=== PATIENT | female | born 1990 | race Caucasian/White ===

== ENCOUNTER 2019-01-14 15:02 | Emergency (ER) | payer MEDICAID ==
--- NOTE | 2019-01-14 16:20 | EDM.PDOC ---
ED HPI GENERAL MEDICAL PROBLEM - General Chief Complaint: Abdominal Pain Stated Complaint: NEWLY PG - ABDOMINAL PAIN Time Seen by Provider: 01/14/19 15:58 Source of Information: Reports: Patient, RN Notes Reviewed History Limitations: Reports: No Limitations - History of Present Illness INITIAL COMMENTS - FREE TEXT/NARRATIVE: Patient is a 28-year-old female who presents to the ED for the evaluation of abdominal cramping. The patient notes that she is roughly 6 weeks . She estimates her last menses to be December 02, 2018. She states that this morning she woke up with some slight abdominal cramping. She notes that the pain didn't really get a hole at better, and at noon today the pain did worsen and radiated into her back. She notes that the pain kind of comes and goes in waves. She has not having any bleeding per her vagina. She denies any dysuria , however does state that she has some mild urinary urgency and frequency, she also had some slight cramping at the end of urinary stream as well. The patient states that she was seen last Thursday in the [place] by Dr. Carrington and her hCG quantitative level was at 159 at that time. She notes that she has her initial OB visit with Dr. Carrington on February 01. Bilateral Lower Abdominal Pain Score (Numeric/FACES): 8 - Related Data Allergies Allergy/AdvReac Type Severity Reaction Status Date / Time No Known Allergies Allergy Verified 01/14/19 15:24 Home Meds: Home Meds . 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: - Past Surgical History Female Surgical History: Reports: Section Social & Family History - Family History Family Medical History: Noncontributory - Tobacco Use Smoking Status *Q: Former Smoker Used Tobacco, but Quit: Yes Month/Year Tobacco Last Used: 11/2018 - Caffeine Use Caffeine Use: Reports: Coffee - Recreational Drug Use Recreational Drug Use: No ED ROS GENERAL - Review of Systems Review Of Systems: See Below Constitutional: Reports: No Symptoms HEENT: Reports: No Symptoms Respiratory: Reports: No Symptoms Cardiovascular: Reports: No Symptoms Endocrine: Reports: No Symptoms GI/Abdominal: Reports: No Symptoms : Reports: Frequency, Urgency, Other (lower pelvic cramping) Musculoskeletal: Reports: Back Pain (low back pain) Skin: Reports: No Symptoms Neurological: Reports: No Symptoms Psychiatric: Reports: No Symptoms ED EXAM, RENAL/ - Physical Exam Exam: See Below Exam Limited By: No Limitations General Appearance: Alert, WD/WN, No Apparent Distress Respiratory/Chest: No Respiratory Distress, Lungs Clear, Normal Breath Sounds, No Accessory Muscle Use, Chest Non-Tender Cardiovascular: Normal Peripheral Pulses, Regular Rate, Rhythm, No Murmur GI/Abdominal: Normal Bowel Sounds, Soft, Non-Tender, No Distention, No Mass (Female) Exam: Deferred Neurological: Alert, Oriented, Normal Cognition, No Motor/Sensory Deficits Psychiatric: Normal Affect, Normal Mood Skin Exam: Warm, Dry, Intact, Normal Color, No Rash Course - Vital Signs Last Recorded V/S: Last Vital Signs Temp 97.8 F 01/14/19 15:18 Pulse 69 01/14/19 15:18 Resp 14 01/14/19 15:18 BP 123/76 01/14/19 15:18 Pulse Ox 99 01/14/19 15:18 - Orders/Labs/Meds Orders: Active Orders 24 hr Category Date Time Status OB Transvaginal [US] Stat Exams 01/14/19 15:59 Ordered Labs: Laboratory Tests 01/14/19 01/14/19 Range/Units 15:50 16:10 HCG, Quant 3517.0 mIU/mL Urine Color Yellow (Yellow) Urine Appearance Clear (Clear) Urine pH 7.0 (5.0-8.0) Ur Specific [place] 1.015 (1.005-1.030) Urine Protein Negative (Negative) Urine Glucose (UA) Negative (Negative) Urine Ketones Negative (Negative) Urine Occult Blood Negative (Negative) Urine Nitrite Negative (Negative) Urine Bilirubin Negative (Negative) Urine Urobilinogen 0.2 (0.2-1.0) Ur Leukocyte Esterase Negative (Negative) Urine RBC 0-5 (0-5) /hpf Urine WBC 0-5 (0-5) /hpf Ur Squamous Epith Cells 0-5 (0-5) /hpf Urine Bacteria Rare (FEW) /hpf Urine Mucus Not seen (FEW) /hpf - Re-Assessments/Exams Free Text/Narrative Re-Assessment/Exam: 01/14/19 16:15 Patient presents to the ED for the evaluation of lower abdominal pain and cramping. I have ordered a transvaginal ultrasound to ensure the viability of the , and hCG quantitative level to make sure that this has risen since her last draw, and a UA to evaluate for a possible UTI. 01/14/19 16:47 UA is negative for UTI. 01/14/19 17:17 Quant hCG is 3517 at this ED visit, US results are still pending. Departure - Departure Time of Disposition: 17:35 Disposition: Home, Self-Care 01 Condition: Fair Clinical Impression: Abdominal cramping affecting - Discharge Information *PRESCRIPTION DRUG MONITORING PROGRAM REVIEWED*: No *COPY OF PRESCRIPTION DRUG MONITORING REPORT IN PATIENT MARY: No Instructions: Abdominal Pain During Referrals: PCP,None [Primary Care Provider] - Forms: ED Department Discharge Additional Instructions: You have been evaluated in the ED today for your abdominal pain in . Your urinalysis was negative for a UTI at this time, your ultrasound shows a single live early intrauterine gestation, which is still too small to date. Your hCG level is 3517. Please keep your appointment with Dr. Carrington for initial OB workup. If you should develop increased pelvic cramping, with vaginal bleeding, this would be cause for concern to return to immediately to the ER for reevaluation. Please return to the ED if your symptoms should change or worsen. - My Orders Last 24 Hours: My Active Orders 01/14/19 15:59 OB Transvaginal [US] Stat - Assessment/Plan Last 24 Hours: My Active Orders 01/14/19 15:59 OB Transvaginal [US] Stat
--- NOTE | 2019-01-16 19:35 | US ---
First trimester obstetrical ultrasound: Multiple real-time images were obtained transvaginally. Very small cystic area noted within the endometrial cavity with what appears to be surrounding decidual reaction. This finding is suspicious for very early which is too small to date. Small amount of free fluid is identified within the cul-de-sac which is believed to be incidental. Very minimal implantation bleed is seen. Maternal ovaries are unremarkable. Impression: 1. Small gestational sac which is too early to date. Follow-up exam could be considered in 11 days to confirm normal developing . 2. Other findings as described above which I believe are incidental. Diagnostic code #1 I agree with preliminary report issued by [facility] ([facility] preliminary report dictated on 01/14/19, 6:22 PM Central Time)
== END 2019-01-14 17:43 | disposition home or self-care (01) ==
LOC: JD.ED 15:02
DX: O99.89 Other specified diseases and conditions complicating pregnancy, childbirth and the puerperium (principal); R10.31 Right lower quadrant pain; R10.32 Left lower quadrant pain; Z3A.01 Less than 8 weeks gestation of pregnancy; Z87.891 Personal history of nicotine dependence
CPT/HCPCS: 36415; 76817; 76817-26; 81001; 84702; 99282; 99284-25

== ENCOUNTER 2019-04-01 22:50 | Emergency (ER) | payer MEDICAID, OTHER ==
--- NOTE | 2019-04-01 23:28 | EDM.PDOC ---
ED HPI GENERAL MEDICAL PROBLEM - General Chief Complaint: PRESSURE TESTER Problem Stated Complaint: 18 WEEKS PREG BACK PAIN AND SOME PATRICIA Time Seen by Provider: 04/01/19 23:00 Source of Information: Reports: Patient, Significant Other (Boyfriend) History Limitations: Reports: No Limitations - History of Present Illness INITIAL COMMENTS - FREE TEXT/NARRATIVE: The patient is a proximally 17 weeks 0 days gestation by dates. LMP 12/03/2018. CLINT 09/09/19. G6 T4 L4, with one ectopic . The patient states that she developed intermittent lower central pelvic pain around 22:00 this evening. The pain lasts only a few seconds, coming and going about every 8-10 minutes. When present, it radiates bilaterally to her flanks. She states that the pain is similar to when she had a miscarriage in the past. She has not had any vaginal bleeding. The patient had an obstetric ultrasound on 01/14/2019, demonstrating a SLIUP, too young to date. She saw her Antenna Engineer on 03/01/2019. The patient states that a Pap smear and blood work were done, all of which were unremarkable. She then saw her OB a couple of days ago, on 03/29/2019. heart tones were noted to be 153. The patient is scheduled to have an obstetric ultrasound in about 2 weeks. The patient denies recent illness. The patient denies having urinary symptoms. The patient does not have a PCP. Her PRESSURE TESTER is Dr. Aletha Carrington. Abdominal Pain Score (Numeric/FACES): 8 - Related Data Allergies Allergy/AdvReac Type Severity Reaction Status Date / Time No Known Allergies Allergy Verified 04/01/19 23:03 Home Meds: Home Meds Ondansetron [Zofran] 4 mg PO QAM 04/01/19 [History] Pnv No.122/Iron/Folic Acid [ Multi Tablet] 1 tab PO DAILY 04/01/19 [ History] Past Medical History PRESSURE TESTER History: Reports: Ectopic (x 1), : 6 Para: 4 - Past Surgical History Female Surgical History: Reports: Section (x 2), Other (See Below) ( Left salpingectomy for ectopic ) Social & Family History - Family History Family Medical History: Noncontributory - Tobacco Use Smoking Status *Q: Former Smoker Years of Tobacco use: 15 Packs/Tins Daily: 0.5 Packs/Tins Daily Comment: Quit December 2018 - Caffeine Use Caffeine Use: Reports: Soda - Alcohol Use Alcohol Use History: No - Recreational Drug Use Recreational Drug Use: No - Living Situation & Occupation Living situation: Reports: Single, with Significant Other (Boyfriend), with Family (1 son) Occupation: Unemployed ED ROS GENERAL - Review of Systems Review Of Systems: ROS reveals no pertinent complaints other than HPI. ED EXAM - Physical Exam Exam: See Below Exam Limited By: No Limitations General Appearance: Alert, WD/WN, No Apparent Distress Eye Exam: Bilateral Eye: EOMI, Normal Inspection Ears: Normal External Exam, Hearing Grossly Normal Nose: Normal Inspection Throat/Mouth: Normal Inspection, Normal Lips, Normal Voice, No Airway Compromise Head: Atraumatic, Normocephalic Neck: Normal Inspection, Full Range of Motion Respiratory/Chest: No Respiratory Distress, Lungs Clear, Normal Breath Sounds, No Accessory Muscle Use Cardiovascular: Normal Peripheral Pulses, Regular Rate, Rhythm, No Edema, No Gallop, No JVD, No Murmur, No Rub GI/Abdominal Exam: Normal Bowel Sounds, Soft, Non-Tender, No Distention, No Abnormal Bruit, No Mass, Pelvis Stable, Other (Gravid uterus consistent with dates) Rectal Exam: Deferred Heart Tones: Present Heart Tones per Min: 131 Back Exam: Normal Inspection, Full Range of Motion, NT Extremities: Normal Inspection, Normal Range of Motion, No Pedal Edema, Normal Capillary Refill Neurological: Alert, Oriented, Normal Cognition, No Motor/Sensory Deficits Psychiatric: Normal Affect Skin Exam: Warm, Dry, Intact, Normal Color, No Rash Course - Vital Signs Last Recorded V/S: Last Vital Signs Temp 36.1 C 04/01/19 23:05 Pulse 90 04/01/19 23:05 Resp 14 04/01/19 23:05 BP 123/66 04/01/19 23:05 Pulse Ox 100 04/01/19 23:05 - Orders/Labs/Meds Orders: Active Orders 24 hr Category Date Time Status Heart Tones [RC] ASDIRECTED Care 04/01/19 23:10 Active Labs: Laboratory Tests 04/01/19 Range/Units 23:22 Urine Color Light yellow (Yellow) Urine Appearance Cloudy H (Clear) Urine pH 7.0 (5.0-8.0) Ur Specific [place] 1.020 (1.005-1.030) Urine Protein Negative (Negative) Urine Glucose (UA) Negative (Negative) Urine Ketones Negative (Negative) Urine Occult Blood Negative (Negative) Urine Nitrite Negative (Negative) Urine Bilirubin Negative (Negative) Urine Urobilinogen 1.0 (0.2-1.0) Ur Leukocyte Esterase Negative (Negative) Urine RBC 0-5 (0-5) /hpf Urine WBC 0-5 (0-5) /hpf Ur Squamous Epith Cells 0-5 (0-5) /hpf Amorphous Sediment Many H (NOT SEEN) /hpf Urine Bacteria Few (FEW) /hpf Urine Mucus Few (FEW) /hpf - Re-Assessments/Exams Free Text/Narrative Re-Assessment/Exam: 04/01/19 23:23 heart tones are measured at about 131 bpm. I have ordered a urinalysis to make sure that the patient is not suffering from a UTI. An obstetric ultrasound is not indicated, given that a prior obstetric ultrasound found a SLIUP, and heart tones are found tonight. Because the patient is over 16 weeks gestation, a quantitative hCG is no longer meaningful. 04/01/19 23:46 The patient's urinalysis is unremarkable. I will discharge her home. Departure - Departure Time of Disposition: 23:47 Disposition: Home, Self-Care 01 Condition: Good Clinical Impression: Discomfort during - Discharge Information *PRESCRIPTION DRUG MONITORING PROGRAM REVIEWED*: Not Applicable *COPY OF PRESCRIPTION DRUG MONITORING REPORT IN PATIENT MARY: Not Applicable Referrals: Aletha Carrington MD [Primary Care Provider] - Forms: ED Department Discharge Additional Instructions: You were seen in the emergency room for intermittent lower pelvic pain radiating to your flanks, without vaginal bleeding, during . Workup in the ER included heart tones and a urinalysis. Your heart tones returned at 131, and your urinalysis was unremarkable. You do not have a UTI. Based on your history, physical exam, and ER tests, you are most likely suffering from discomfort . You may take [id number] Tylenol as needed for discomfort. Continue to take your vitamins as prescribed. Follow-up with your Antenna Engineer, Dr. Aletha Carrington, as needed, or at your previously scheduled appointment in about 2 weeks. If any other problems, please do not hesitate to return to the ER. - My Orders Last 24 Hours: My Active Orders 04/01/19 23:10 Heart Tones [RC] ASDIRECTED - Assessment/Plan Last 24 Hours: My Active Orders 04/01/19 23:10 Heart Tones [RC] ASDIRECTED
== END 2019-04-01 23:59 | disposition home or self-care (01) ==
LOC: JD.ED 22:50
DX: O26.892 Other specified pregnancy related conditions, second trimester (principal); R10.2 Pelvic and perineal pain; Z3A.17 17 weeks gestation of pregnancy; Z87.891 Personal history of nicotine dependence
CPT/HCPCS: 81001; 99282; 99284

== ENCOUNTER 2019-09-07 04:56 | Inpatient (IN) | payer MEDICAID ==
[~2019-09-07 04:56] MED LIST: Sodium Chloride 0.9% 10 ML Syringe FLUSH PRN
[2019-09-07] MEDS: Lactated Ringers 1,000 ML IV SCH ×2 (05:40→06:49)
[2019-09-07] MEDS ORDERED: Metoclopramide 10 MG/2 ML SDV IVPUSH ONE (06:30)
[2019-09-07] MEDS ORDERED: Citric Acid/Sodium Citrate Solution 30 ML Cup PO ONE (06:30)
[2019-09-07] MEDS ORDERED: ceFAZolin 2 GM in Premix Bag 1 BAG IV ONE (07:00)
[2019-09-07] MEDS ORDERED: ceFAZolin 1 GM Vial ONE (07:19)
[2019-09-07] MEDS ORDERED: Lactated Ringers 2,000 ML ONE (07:19)
[2019-09-07] MEDS ORDERED: Ketorolac 30 MG/ML SDV ONE (07:19)
[2019-09-07] MEDS ORDERED: Ondansetron 4 MG/2 ML SDV ONE (07:19)
[2019-09-07] MEDS ORDERED: Oxytocin 10 Units/1 ML SDV ONE (07:19)
[2019-09-07] MEDS ORDERED: Morphine PF 10 MG/10 ML SDV ONE (07:20)
--- NOTE | 2019-09-07 07:24 | PCM.OPNOTE ---
- General Post-Op/Procedure Note Date of Surgery/Procedure: 09/07/19 Operative Procedure(s): repeat Findings: significant adhesions, thin low uterine segment (window), male, vertex, 9/9 APGARS at 927, weight 7#14oz Pre Op Diagnosis: prior desires repeat Post-Op Diagnosis: Same Anesthesia Technique: Spinal Primary Surgeon: Aletha Carrington Anesthesia Provider: Denise Choudhury Branch Billing Payroll Clerk: Evelyne Jacob Fluid Replacement, Intraop: 800 Output, Urine Amount: 175 EBL in mLs: 800 Complications: None Condition: Good Free Text/Narrative:: The patient was taken to the operating room where spinal anesthesia was dosed to surgical levels without difficulty. The patient was prepped and draped in the usual sterile fashion in the dorsal supine position with a leftward tilt. A Pfannenstiel skin incision was made with the scalpel and carried through to the underlying layer of fascia. The fascia was incised in the midline and extended laterally using Cruz scissors. Kiarra clamps were used to elevate the superior aspect of the fascial incision, which was elevated, and the underlying rectus muscles were dissected off bluntly and using Cruz scissors. Attention was then turned to the inferior aspect of the fascial incision, which in similar fashion was grasped with Kiarra clamps, elevated, and the underlying rectus muscles were dissected off bluntly and using the cruz. The rectus muscles were dissected in the midline. Significant adhesions taken down carefully and rectus divided laterally. The peritoneum was entered bluntly; this incision was extended superiorly and inferiorly with good visualization of the bladder. Thick peritoneal bands divided. The bladder blade was inserted. The lower uterine segment was incised in a transverse fashion using the scalpel and with digital traction. Clear fluid was noted. The infant was subsequently delivered by flexing the head to the incision. Body and shoulders followed without difficulty. The cord was clamped and cut. The infant was subsequently handed to the awaiting boat tender whose presence had been requested.. The placenta was delivered spontaneously intact with a three-vessel cord noted. The uterus was exteriorized and small band of adhesion divided to allow this and cleared of all clots and debris. The uterine incision was repaired in 2 layers using 0 monocryl. Hemostasis was visualized. Hemostasis was visualized bilaterally. The uterus was returned to the abdomen. The uterine incision was reexamined and it was noted to be hemostatic. The pelvis was copiously irrigated. The fascia was closed with 0 PDS suture, and the skin was closed with 3-0 monocryl. Sponge , lap, and instrument counts were correct x2. The patient was stable at the completion of the procedure and was subsequently transferred to the recovery room in stable condition.
[2019-09-07] MEDS ORDERED: Oxytocin/Lactated Ringers 10 UNIT/1,000 ML BAG IV SCH (07:30)
[2019-09-07] MEDS ORDERED: Bupivacaine 0.5% 30 ML SDV ONE (07:51)
[2019-09-07] MEDS ORDERED: Ondansetron 4 MG/2 ML SDV IVPUSH PRN (08:26)
[2019-09-07] MEDS ORDERED: fentaNYL 100 MCG/2 ML SDV IVPUSH PRN (08:26)
[2019-09-07] MEDS ORDERED: diphenhydrAMINE 50 MG/ML SDV IVPUSH PRN ×2 (08:26→11:13)
--- NOTE | 2019-09-07 08:26 | PCM.PREANE ---
Preanesthetic Assessment - Anesthesia/Transfusion/Family Hx Anesthesia History: Prior Anesthesia Without Reaction Family History of Anesthesia Reaction: No Transfusion History: No Prior Transfusion(s) - Review of Systems General: No Symptoms Pulmonary: No Symptoms Cardiovascular: No Symptoms Gastrointestinal: No Symptoms Neurological: No Symptoms Other: Reports: None - Physical Assessment NPO Status Date: 09/07/19 NPO Status Time: 00:00 Vital Signs: Last Vital Signs Temp 36.7 C 09/07/19 05:12 Pulse 97 09/07/19 05:12 Resp 14 09/07/19 05:12 BP 123/67 09/07/19 05:12 Pulse Ox 98 09/07/19 05:12 Height: 1.6 m Weight: 81.193 kg ASA Class: 2 Mental Status: Alert & Oriented x3 Airway Class: Mallampati = 1 Dentition: Reports: Normal Dentition, Caries Thyro-Mental Finger Breadths: 3 Mouth Opening Finger Breadths: 3 ROM/Head Extension: Full Lungs: Clear to Auscultation, Normal Respiratory Effort Cardiovascular: Regular Rate, Regular Rhythm - Lab Values: Laboratory Last Values WBC 12.83 K/mm3 (3.98-10.04) H 09/07/19 05:47 RBC 4.71 M/mm3 (3.98-5.22) 09/07/19 05:47 Hgb 9.4 gm/dl (11.2-15.7) L D 09/07/19 05:47 Hct 32.0 % (34.1-44.9) L 09/07/19 05:47 MCV 67.9 fl (79.4-94.8) L D 09/07/19 05:47 MCH 20.0 pg (25.6-32.2) L 09/07/19 05:47 MCHC 29.4 g/dl (32.2-35.5) L 09/07/19 05:47 RDW Std Deviation 42.2 fL (36.4-46.3) 09/07/19 05:47 Plt Count 244 K/mm3 (182-369) 09/07/19 05:47 MPV 10.6 fl (9.4-12.3) 09/07/19 05:47 Neut % (Auto) 74.2 % (34.0-71.1) H 09/07/19 05:47 Lymph % (Auto) 15.8 % (19.3-51.7) L 09/07/19 05:47 [place] % (Auto) 8.6 % (4.7-12.5) 09/07/19 05:47 Eos % (Auto) 0.6 (0.7-5.8) L 09/07/19 05:47 Baso % (Auto) 0.2 % (0.1-1.2) 09/07/19 05:47 Neut # (Auto) 9.52 K/mm3 (1.56-6.13) H 09/07/19 05:47 Lymph # (Auto) 2.03 K/mm3 (1.18-3.74) 09/07/19 05:47 [place] # (Auto) 1.10 K/mm3 (0.24-0.36) H 09/07/19 05:47 Eos # (Auto) 0.08 K/mm3 (0.04-0.36) 09/07/19 05:47 Baso # (Auto) 0.02 K/mm3 (0.01-0.08) 09/07/19 05:47 Manual Slide Review Abnormal smear 09/07/19 05:47 - Allergies Allergies/Adverse Reactions: Allergies Allergy/AdvReac Type Severity Reaction Status Date / Time No Known Allergies Allergy Verified 09/07/19 07:35 - Acknowledgements Anesthesia Type Planned: Spinal Pt an Appropriate Candidate for the Planned Anesthesia: Yes Alternatives and Risks of Anesthesia Discussed w Pt/Guardian: Yes Pt/Guardian Understands and Agrees with Anesthesia Plan: Yes PreAnesthesia Questionnaire Respiratory History: Reports: Asthma 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 D&C 2018 - SUBSTANCE USE Smoking Status *Q: Former Smoker Tobacco Use Within Last Twelve Months: Cigarettes Second Hand Smoke Exposure: Yes Recreational Drug Use History: No - HOME MEDS Home Medications: Home Meds No122/Iron/Folic Acid [ Multi Tablet] 1 tab PO DAILY 04/01/19 [ History] - CURRENT (IN HOUSE) MEDS Current Meds: Current Medications Lactated Ringer's (Ringers, Lactated) 1,000 mls @ 125 mls/hr IV ASDIRECTED GIORGI Last Admin: 09/07/19 06:49 Dose: 125 mls/hr Oxytocin/Lactated Ringer's (Pitocin In Lr 10 Units/1,000 Ml) 10 unit in 1,000 mls @ 100 mls/hr IV ASDIRECTED GIORGI; Protocol Sodium Chloride (Saline Flush) 10 ml FLUSH ASDIRECTED PRN PRN Reason: Keep Vein Open Discontinued Medications Bupivacaine HCl (Marcaine 0.5%) Confirm Administered Dose 30 ml .ROUTE .STK-MED ONE Stop: 09/07/19 07:52 Cefazolin Sodium (Ancef) Confirm Administered Dose 2 gm .ROUTE .STK-MED ONE Stop: 09/07/19 07:20 Citric Acid/Sodium Citrate (Bicitra Solution) 30 ml PO ONETIME ONE Stop: 09/07/19 06:31 Last Admin: 09/07/19 05:52 Dose: 30 ml Cefazolin Sodium/Dextrose 2 gm (/ Premix) 50 mls @ 100 mls/hr IV ONETIME ONE Stop: 09/07/19 07:29 Lactated Ringer's (Ringers, Lactated) Confirm Administered Dose 2,000 mls @ as directed .ROUTE .STK-MED ONE Stop: 09/07/19 07:20 Ketorolac Tromethamine (Toradol) Confirm Administered Dose 30 mg .ROUTE .STK- MED ONE Stop: 09/07/19 07:20 Metoclopramide HCl (Reglan) 10 mg IVPUSH ONETIME ONE Stop: 09/07/19 06:31 Last Admin: 09/07/19 05:52 Dose: 10 mg Morphine Sulfate (Duramorph Pf) Confirm Administered Dose 10 mg .ROUTE .STK-MED ONE Stop: 09/07/19 07:21 Ondansetron HCl (Zofran) Confirm Administered Dose 4 mg .ROUTE .STK-MED ONE Stop: 09/07/19 07:20 Oxytocin (Pitocin) Confirm Administered Dose 20 unit .ROUTE .STK-MED ONE Stop: 09/07/19 07:20
[2019-09-07] MEDS ORDERED: Dexamethasone 4 MG/ML SDV ONE (08:45)
[2019-09-07] MEDS ORDERED: Phenylephrine/Normal Saline 100 MCG/ML 10 ML Syringe ONE (09:15)
[2019-09-07] MEDS ORDERED: ePHEDrine/Normal Saline 25 MG/5 ML Syringe ONE (09:15)
--- NOTE | 2019-09-07 10:07 | PCM.POSTAN ---
POST ANESTHESIA ASSESSMENT - MENTAL STATUS Mental Status: Alert, Oriented - VITAL SIGNS Vital Signs: Last Vital Signs Temp 36.7 C 09/07/19 05:12 Pulse 97 09/07/19 05:12 Resp 14 09/07/19 05:12 BP 123/67 09/07/19 05:12 Pulse Ox 98 09/07/19 05:12 0955 110/51 78 20 97.8F 95% - RESPIRATORY Respiratory Status: Respiratory Rate WNL, Airway Patent, O2 Saturation Stable - CARDIOVASCULAR CV Status: Pulse Rate WNL, Blood Pressure Stable - GASTROINTESTINAL GI Status: No Symptoms - PAIN Pain Score: 0 - POST OP HYDRATION Hydration Status: Adequate & Stable
[2019-09-07] MEDS ORDERED: Acetaminophen/oxyCODONE 325-5 MG Tab PO PRN ×2 (11:13)
[2019-09-07] MEDS ORDERED: Docusate Sodium 100 MG Cap PO PRN (11:13)
[2019-09-07] MEDS ORDERED: Dextrose 5%-Lactated Ringers 1,000 ML IV SCH (11:13)
[2019-09-07] MEDS ORDERED: Naloxone 0.4 MG/ML SDV IVPUSH PRN (11:13)
[2019-09-07] MEDS ORDERED: ePHEDrine 50 MG/ML SDV IVPUSH PRN (11:13)
[2019-09-07] MEDS ORDERED: Ketorolac 30 MG/ML SDV IVPUSH SCH (13:30)
[2019-09-07] MEDS: Ketorolac 30 MG/ML SDV IVPUSH SCH ×2 (16:12→22:11)
[2019-09-08] MEDS: Ketorolac 30 MG/ML SDV IVPUSH SCH (04:33)
--- NOTE | 2019-09-08 07:24 | PCM.PNPP ---
- General Info Date of Service: 09/08/19 Functional Status: Reports: Pain Controlled, Tolerating Diet, Ambulating - Review of Systems General: Reports: No Symptoms HEENT: Reports: No Symptoms Pulmonary: Reports: No Symptoms Cardiovascular: Reports: No Symptoms Gastrointestinal: Reports: No Symptoms Genitourinary: Reports: No Symptoms Musculoskeletal: Reports: No Symptoms Skin: Reports: No Symptoms Neurological: Reports: No Symptoms Psychiatric: Reports: No Symptoms - Patient Data Vital Signs - Most Recent: Last Vital Signs Temp 36.6 C 09/08/19 04:44 Pulse 74 09/07/19 20:28 Resp 14 09/08/19 04:44 BP 115/62 09/08/19 04:44 Pulse Ox 94 L 09/08/19 04:44 Weight - Most Recent: 81.193 kg I&O - Last 24 Hours: Intake & Output 09/07/19 09/08/19 09/08/19 22:59 06:59 14:59 Intake Total 1060 Output Total 1900 850 Balance -840 -850 Lab Results - Last 24 Hours: Laboratory Results - last 24 hr 09/07/19 09/07/19 09/07/19 Range/Units 05:47 05:47 05:47 WBC (3.98-10.04) K/mm3 RBC (3.98-5.22) M/mm3 Hgb (11.2-15.7) gm/dl Hct (34.1-44.9) % MCV (79.4-94.8) fl MCH (25.6-32.2) pg MCHC (32.2-35.5) g/dl RDW Std Deviation (36.4-46.3) fL Plt Count (182-369) K/mm3 MPV (9.4-12.3) fl Neut % (Auto) (34.0-71.1) % Lymph % (Auto) (19.3-51.7) % [place] % (Auto) (4.7-12.5) % Eos % (Auto) (0.7-5.8) Baso % (Auto) (0.1-1.2) % Neut # (Auto) (1.56-6.13) K/mm3 Lymph # (Auto) (1.18-3.74) K/mm3 [place] # (Auto) (0.24-0.36) K/mm3 Eos # (Auto) (0.04-0.36) K/mm3 Baso # (Auto) (0.01-0.08) K/mm3 Manual Slide Review Abnormal smear RPR Non-reactive (NONREACTIVE) Blood Type O POSITIVE Gel Antibody Screen Negative 09/08/19 Range/Units 05:40 WBC 18.92 H (3.98-10.04) K/mm3 RBC 4.28 (3.98-5.22) M/mm3 Hgb 8.9 L (11.2-15.7) gm/dl Hct 28.6 L (34.1-44.9) % MCV 66.8 L (79.4-94.8) fl MCH 20.8 L (25.6-32.2) pg MCHC 31.1 L (32.2-35.5) g/dl RDW Std Deviation 42.5 (36.4-46.3) fL Plt Count 251 (182-369) K/mm3 MPV 11.1 (9.4-12.3) fl Neut % (Auto) 75.3 H (34.0-71.1) % Lymph % (Auto) 15.9 L (19.3-51.7) % [place] % (Auto) 8.2 (4.7-12.5) % Eos % (Auto) 0.4 L (0.7-5.8) Baso % (Auto) 0.2 (0.1-1.2) % Neut # (Auto) 14.25 H (1.56-6.13) K/mm3 Lymph # (Auto) 3.01 (1.18-3.74) K/mm3 [place] # (Auto) 1.56 H (0.24-0.36) K/mm3 Eos # (Auto) 0.07 (0.04-0.36) K/mm3 Baso # (Auto) 0.03 (0.01-0.08) K/mm3 Manual Slide Review RPR (NONREACTIVE) Blood Type Gel Antibody Screen Med Orders - Current: Current Medications Diphenhydramine HCl (Benadryl) 25 mg IVPUSH Q6H PRN PRN Reason: Itching or Nausea Docusate Sodium (Colace) 100 mg PO Q12H PRN PRN Reason: Constipation Last Admin: 09/07/19 22:11 Dose: 100 mg Ephedrine Sulfate (Ephedrine Sulfate) 5 mg IVPUSH SEECOMMENT PRN PRN Reason: Other Ibuprofen (Motrin) 600 mg PO Q6H PRN PRN Reason: mild pain or fever Naloxone HCl (Narcan) 0.1 mg IVPUSH SEECOMMENT PRN PRN Reason: Respiratory Depression Oxycodone/Acetaminophen (Percocet 325-5 Mg) 1 tab PO Q4H PRN PRN Reason: Pain (moderate 4-6) Oxycodone/Acetaminophen (Percocet 325-5 Mg) 2 tab PO Q4H PRN PRN Reason: Pain (severe 7-10) Discontinued Medications Bupivacaine HCl (Marcaine 0.5%) Confirm Administered Dose 30 ml .ROUTE .STK-MED ONE Stop: 09/07/19 07:52 Last Admin: 09/07/19 09:14 Dose: 20 ml Cefazolin Sodium (Ancef) Confirm Administered Dose 2 gm .ROUTE .STK-MED ONE Stop: 09/07/19 07:20 Citric Acid/Sodium Citrate (Bicitra Solution) 30 ml PO ONETIME ONE Stop: 09/07/19 06:31 Last Admin: 09/07/19 05:52 Dose: 30 ml Dexamethasone (Dexamethasone) Confirm Administered Dose 4 mg .ROUTE .STK-MED ONE Stop: 09/07/19 08:46 Diphenhydramine HCl (Benadryl) 25 mg IVPUSH Q6H PRN PRN Reason: Pruritis Ephedrine Sulfate (Ephedrine In Ns) Confirm Administered Dose 25 mg .ROUTE .STK- MED ONE Stop: 09/07/19 09:16 Fentanyl (Sublimaze) 50 mcg IVPUSH Q5M PRN PRN Reason: Pain Cefazolin Sodium/Dextrose 2 gm (/ Premix) 50 mls @ 100 mls/hr IV ONETIME ONE Stop: 09/07/19 07:29 Last Admin: 09/07/19 11:26 Dose: Not Given Lactated Ringer's (Ringers, Lactated) 1,000 mls @ 125 mls/hr IV ASDIRECTED [facility] Last Admin: 09/07/19 06:49 Dose: 125 mls/hr Oxytocin/Lactated Ringer's (Pitocin In Lr 10 Units/1,000 Ml) 10 unit in 1,000 mls @ 100 mls/hr IV ASDIRECTED [facility]; Protocol Lactated Ringer's (Ringers, Lactated) Confirm Administered Dose 2,000 mls @ as directed .ROUTE .STK-MED ONE Stop: 09/07/19 07:20 Dextrose/Lactated Ringer's (Dextrose 5%-Lactated Ringers) 1,000 mls @ 125 mls/ hr IV ASDIRECTED [facility] Stop: 09/07/19 19:12 Last Admin: 09/07/19 14:49 Dose: 125 mls/hr Ketorolac Tromethamine (Toradol) Confirm Administered Dose 30 mg .ROUTE .STK- MED ONE Stop: 09/07/19 07:20 Ketorolac Tromethamine (Toradol) 30 mg IVPUSH Q6H [facility] Stop: 09/08/19 01:31 Last Admin: 09/07/19 17:42 Dose: Not Given Ketorolac Tromethamine (Toradol) 30 mg IVPUSH Q6H [facility] Stop: 09/08/19 04:01 Last Admin: 09/08/19 04:33 Dose: 30 mg Metoclopramide HCl (Reglan) 10 mg IVPUSH ONETIME ONE Stop: 09/07/19 06:31 Last Admin: 09/07/19 05:52 Dose: 10 mg Morphine Sulfate (Duramorph Pf) Confirm Administered Dose 10 mg .ROUTE .STK-MED ONE Stop: 09/07/19 07:21 Ondansetron HCl (Zofran) Confirm Administered Dose 4 mg .ROUTE .STK-MED ONE Stop: 09/07/19 07:20 Ondansetron HCl (Zofran) 4 mg IVPUSH ONETIME PRN PRN Reason: Nausea/Vomiting Oxytocin (Pitocin) Confirm Administered Dose 20 unit .ROUTE .STK-MED ONE Stop: 09/07/19 07:20 Phenylephrine HCl (Phenylephrine In Ns 100 Mcg/Ml) Confirm Administered Dose 1 mg .ROUTE .STK-MED ONE Stop: 09/07/19 09:16 Sodium Chloride (Saline Flush) 10 ml FLUSH ASDIRECTED PRN PRN Reason: Keep Vein Open - Infant Interaction Disposition, : [place] in Room with Family Infant Interaction: Holding Infant Support Person: Significant Other - Recovery Exam Fundal Tone: Firm Fundal Level: 1 Fingerbreadths Below Umbilicus Fundal Placement: Midline Lochia Amount: Scant Lochia Color: Rubra/Red Perineum Description: Intact, Minimal Bruising/Swelling Episiotomy/Laceration: None Bladder Status: Indwelling Catheter in Place - Exam General: Alert, Oriented HEENT: Pupils Equal Neck: Supple Lungs: Clear to Auscultation, Normal Respiratory Effort Cardiovascular: Regular Rate, Regular Rhythm GI/Abdominal Exam: Normal Bowel Sounds, Soft, Non-Tender, No Organomegaly, No Distention, No Abnormal Bruit, No Mass, Pelvis Stable Extremities: Normal Inspection, Normal Range of Motion, Non-Tender, No Pedal Edema, Normal Capillary Refill Skin: Warm, Dry, Intact Wound/Incisions: Healing Well Neurological: No New Focal Deficit Psy/Mental Status: Alert, Normal Affect, Normal Mood - Problem List Review Problem List Initiated/Reviewed/Updated: Yes - My Orders Last 24 Hours: My Active Orders 09/07/19 11:13 Communication Order [RC] PER UNIT ROUTINE Communication Order [RC] PER UNIT ROUTINE Notify Provider Intake and Out [RC] ASDIRECTED Vital Signs [RC] Q4HR Acetaminophen/oxyCODONE [Percocet 325-5 MG] 1 tab PO Q4H PRN Acetaminophen/oxyCODONE [Percocet 325-5 MG] 2 tab PO Q4H PRN Docusate Sodium [Colace] 100 mg PO Q12H PRN Naloxone [Narcan] 0.1 mg IVPUSH SEECOMMENT PRN diphenhydrAMINE [Benadryl] 25 mg IVPUSH Q6H PRN ePHEDrine [ePHEDrine sulfate] 5 mg IVPUSH SEECOMMENT PRN Assess Lochia [WOMSER] Per Unit Routine Assess Uterine Involution [WOMSER] Per Unit Routine Medication Administration Instruction [OM.PC] Routine 09/07/19 Lunch Regular Diet [DIET] 09/08/19 05:40 CBC WITH AUTO DIFF [HEME] AM 09/08/19 10:00 Ibuprofen [Motrin] 600 mg PO Q6H PRN 09/08/19 10:17 Urinary Catheter Removal [RC] Per Unit Routine - Assessment Assessment:: Term . POD1. Will desire discharge tomorrow. Doing great otherwise.
--- NOTE | 2019-09-08 09:06 | PCM.DCSUM1 ---
Discharge Summary - Hospital Course Free Text/Narrative:: Admitted for RCS. Diagnosis: Stroke: No - Discharge Data Discharge Date: 09/08/19 Discharge Disposition: Home, Self-Care 01 Condition: Good - Referral to Home Health Primary Care Physician: Aletha Carrintgon MD - Patient Summary/Data Operative Procedure(s) Performed: repeat - Patient Instructions Diet: Usual Diet as Tolerated Activity: No Strenuous Activities Driving: Do Not Drive Wound/Incision Care: Keep Operative Site/Wound Site Clean and Dry Notify Provider of: Fever, Increased Pain - Discharge Plan *PRESCRIPTION DRUG MONITORING PROGRAM REVIEWED*: Not Applicable *COPY OF PRESCRIPTION DRUG MONITORING REPORT IN PATIENT MARY: Not Applicable Home Medications: Home Meds No122/Iron/Folic Acid [ Multi Tablet] 1 tab PO DAILY 04/01/19 [ History] Referrals: Aletha Carrington MD [Primary Care Provider] - (1-2 weeks) - Discharge Summary/Plan Comment DC Time >30 min.: No - General Info Functional Status: Reports: Pain Controlled - Review of Systems General: Reports: No Symptoms HEENT: Reports: No Symptoms Pulmonary: Reports: No Symptoms Cardiovascular: Reports: No Symptoms Gastrointestinal: Reports: No Symptoms Genitourinary: Reports: No Symptoms Musculoskeletal: Reports: No Symptoms Skin: Reports: No Symptoms Neurological: Reports: No Symptoms Psychiatric: Reports: No Symptoms - Patient Data Vitals - Most Recent: Last Vital Signs Temp 36.1 C 09/08/19 08:32 Pulse 69 09/08/19 08:32 Resp 14 09/08/19 08:32 BP 122/72 09/08/19 08:32 Pulse Ox 98 09/08/19 08:32 Weight - Most Recent: 81.193 kg I&O - Last 24 hours: Intake & Output 09/07/19 09/08/19 09/08/19 22:59 06:59 14:59 Intake Total 1060 Output Total 1900 850 Balance -840 -850 Lab Results - Last 24 hrs: Laboratory Results - last 24 hr 09/07/19 09/08/19 Range/Units 05:47 05:40 WBC 18.92 H (3.98-10.04) K/mm3 RBC 4.28 (3.98-5.22) M/mm3 Hgb 8.9 L (11.2-15.7) gm/dl Hct 28.6 L (34.1-44.9) % MCV 66.8 L (79.4-94.8) fl MCH 20.8 L (25.6-32.2) pg MCHC 31.1 L (32.2-35.5) g/dl RDW Std Deviation 42.5 (36.4-46.3) fL Plt Count 251 (182-369) K/mm3 MPV 11.1 (9.4-12.3) fl Neut % (Auto) 75.3 H (34.0-71.1) % Lymph % (Auto) 15.9 L (19.3-51.7) % [place] % (Auto) 8.2 (4.7-12.5) % Eos % (Auto) 0.4 L (0.7-5.8) Baso % (Auto) 0.2 (0.1-1.2) % Neut # (Auto) 14.25 H (1.56-6.13) K/mm3 Lymph # (Auto) 3.01 (1.18-3.74) K/mm3 [place] # (Auto) 1.56 H (0.24-0.36) K/mm3 Eos # (Auto) 0.07 (0.04-0.36) K/mm3 Baso # (Auto) 0.03 (0.01-0.08) K/mm3 Manual Slide Review Abnormal smear RPR Non-reactive (NONREACTIVE) Med Orders - Current: Current Medications Diphenhydramine HCl (Benadryl) 25 mg IVPUSH Q6H PRN PRN Reason: Itching or Nausea Docusate Sodium (Colace) 100 mg PO Q12H PRN PRN Reason: Constipation Last Admin: 09/07/19 22:11 Dose: 100 mg Ephedrine Sulfate (Ephedrine Sulfate) 5 mg IVPUSH SEECOMMENT PRN PRN Reason: Other Ibuprofen (Motrin) 600 mg PO Q6H PRN PRN Reason: mild pain or fever Naloxone HCl (Narcan) 0.1 mg IVPUSH SEECOMMENT PRN PRN Reason: Respiratory Depression Oxycodone/Acetaminophen (Percocet 325-5 Mg) 1 tab PO Q4H PRN PRN Reason: Pain (moderate 4-6) Oxycodone/Acetaminophen (Percocet 325-5 Mg) 2 tab PO Q4H PRN PRN Reason: Pain (severe 7-10) Discontinued Medications Bupivacaine HCl (Marcaine 0.5%) Confirm Administered Dose 30 ml .ROUTE .STK-MED ONE Stop: 09/07/19 07:52 Last Admin: 09/07/19 09:14 Dose: 20 ml Cefazolin Sodium (Ancef) Confirm Administered Dose 2 gm .ROUTE .ST-MED ONE Stop: 09/07/19 07:20 Citric Acid/Sodium Citrate (Bicitra Solution) 30 ml PO ONETIME ONE Stop: 09/07/19 06:31 Last Admin: 09/07/19 05:52 Dose: 30 ml Dexamethasone (Dexamethasone) Confirm Administered Dose 4 mg .ROUTE .ST-MED ONE Stop: 09/07/19 08:46 Diphenhydramine HCl (Benadryl) 25 mg IVPUSH Q6H PRN PRN Reason: Pruritis Ephedrine Sulfate (Ephedrine In Ns) Confirm Administered Dose 25 mg .ROUTE .ST- MED ONE Stop: 09/07/19 09:16 Fentanyl (Sublimaze) 50 mcg IVPUSH Q5M PRN PRN Reason: Pain Cefazolin Sodium/Dextrose 2 gm (/ Premix) 50 mls @ 100 mls/hr IV ONETIME ONE Stop: 09/07/19 07:29 Last Admin: 09/07/19 11:26 Dose: Not Given Lactated Ringer's (Ringers, Lactated) 1,000 mls @ 125 mls/hr IV ASDIRECTED [facility] Last Admin: 09/07/19 06:49 Dose: 125 mls/hr Oxytocin/Lactated Ringer's (Pitocin In Lr 10 Units/1,000 Ml) 10 unit in 1,000 mls @ 100 mls/hr IV ASDIRECTED [facility]; Protocol Lactated Ringer's (Ringers, Lactated) Confirm Administered Dose 2,000 mls @ as directed .ROUTE .ST-MED ONE Stop: 09/07/19 07:20 Dextrose/Lactated Ringer's (Dextrose 5%-Lactated Ringers) 1,000 mls @ 125 mls/ hr IV ASDIRECTED [facility] Stop: 09/07/19 19:12 Last Admin: 09/07/19 14:49 Dose: 125 mls/hr Ketorolac Tromethamine (Toradol) Confirm Administered Dose 30 mg .ROUTE .STK- MED ONE Stop: 09/07/19 07:20 Ketorolac Tromethamine (Toradol) 30 mg IVPUSH Q6H [facility] Stop: 09/08/19 01:31 Last Admin: 09/07/19 17:42 Dose: Not Given Ketorolac Tromethamine (Toradol) 30 mg IVPUSH Q6H [facility] Stop: 09/08/19 04:01 Last Admin: 09/08/19 04:33 Dose: 30 mg Metoclopramide HCl (Reglan) 10 mg IVPUSH ONETIME ONE Stop: 09/07/19 06:31 Last Admin: 09/07/19 05:52 Dose: 10 mg Morphine Sulfate (Duramorph Pf) Confirm Administered Dose 10 mg .ROUTE .STK-MED ONE Stop: 09/07/19 07:21 Ondansetron HCl (Zofran) Confirm Administered Dose 4 mg .ROUTE .STK-MED ONE Stop: 09/07/19 07:20 Ondansetron HCl (Zofran) 4 mg IVPUSH ONETIME PRN PRN Reason: Nausea/Vomiting Oxytocin (Pitocin) Confirm Administered Dose 20 unit .ROUTE .STK-MED ONE Stop: 09/07/19 07:20 Phenylephrine HCl (Phenylephrine In Ns 100 Mcg/Ml) Confirm Administered Dose 1 mg .ROUTE .STK-MED ONE Stop: 09/07/19 09:16 Sodium Chloride (Saline Flush) 10 ml FLUSH ASDIRECTED PRN PRN Reason: Keep Vein Open - Exam General: Reports: Alert, Oriented HEENT: Reports: Pupils Equal, Pupils Reactive, EOMI, Mucous Membr. Moist/[place] Neck: Reports: Supple Lungs: Reports: Clear to Auscultation, Normal Respiratory Effort Cardiovascular: Reports: Regular Rate, Regular Rhythm GI/Abdominal Exam: Normal Bowel Sounds, Soft, Non-Tender, No Organomegaly, No Distention, No Abnormal Bruit, No Mass, Pelvis Stable Rectal (Female) Exam: Normal Exam, Normal Rectal Tone Back Exam: Reports: Normal Inspection, Full Range of Motion Extremities: Normal Inspection, Normal Range of Motion, Non-Tender, No Pedal Edema, Normal Capillary Refill Skin: Reports: Warm, Dry, Intact Wound/Incisions: Reports: Healing Well Neurological: Reports: No New Focal Deficit Psy/Mental Status: Reports: Alert, Normal Affect, Normal Mood
[2019-09-08] MEDS ORDERED: Ibuprofen 600 MG Tab PO PRN (10:00)
[2019-09-08] MEDS ORDERED: Measles, Mumps & Rubella Vaccine 0.5 ML SDV SUBCUT ONE (13:44)
--- NOTE | 2019-09-08 15:40 | PCM48HPAN ---
Post Anesthesia Note - EVALUATION WITHIN 48HRS OF ANESTHETIC Vital Signs in Normal Range: Yes Patient Participated in Evaluation: Yes Respiratory Function Stable: Yes Airway Patent: Yes Cardiovascular Function Stable: Yes Hydration Status Stable: Yes Pain Control Satisfactory: Yes Nausea and Vomiting Control Satisfactory: Yes Mental Status Recovered: Yes Vital Signs: Last Vital Signs Temp 97.0 F 09/08/19 08:32 Pulse 69 09/08/19 08:32 Resp 14 09/08/19 08:32 BP 122/72 09/08/19 08:32 Pulse Ox 98 09/08/19 08:32 - COMMENTS/OBSERVATIONS Free Text/Narrative:: Ambulating, denies backache, numbness /tingling in LE, no problems urinating
== END 2019-09-08 17:15 | disposition home or self-care (01) | DRG 788 ==
LOC: JD.OB 04:56
PROVIDERS: ADMIT Obstetrics & Gynecology; ATTEND Obstetrics & Gynecology
PROC: 10D00Z1 Extraction of Products of Conception, Low, Open Approach (ICD-10-PCS; principal; 2019-09-07)
PROC: 3E0234Z Introduction of Serum, Toxoid and Vaccine into Muscle, Percutaneous Approach (ICD-10-PCS; 2019-09-08)
DX: O34.211 Maternal care for low transverse scar from previous cesarean delivery (principal); Z3A.39 39 weeks gestation of pregnancy; Z37.0 Single live birth; Z87.891 Personal history of nicotine dependence; Z23 Encounter for immunization
CPT/HCPCS: 01961; 36415; 59025; 85025; 86592; 86850; 86900; 86901; 90471; 90707; 94762; A9270-GY; J0690; J1100; J1885; J2270; J2370; J2405; J2590; J2765; J3490; J7050; J7120; J7121